=== PATIENT | female | born 1960 | race Hispanic/Latino ===

== ENCOUNTER → 2019-08-11 | Outpatient (CLI) | payer BC ==
[~2019-08-11] MED LIST: ATOR10TA69 PO; LOSA25TA41 PO
== END | disposition home or self-care (01) ==
LOC: SHCH 09:52
PROVIDERS: ATTEND Internal Medicine Cardiovascular Disease
DX: R07.9 Chest pain, unspecified (principal)
CPT/HCPCS: 93306

== ENCOUNTER 2024-05-29 09:09 | Emergency (ER) | payer OTHER ==
[~2024-05-29] VITALS: Ht 162.6 cm; Wt 88.0 kg
[2024-05-29 09:39] LABS: BASOPHILS # (AUTO) 0.01 K/uL (0.00-0.20); BASOPHILS % (AUTO) 0.1 % (0.0-5.0); EOSINOPHILS # (AUTO) 0.04 K/uL (0.00-0.70); EOSINOPHILS % (AUTO) 0.4 % (0.0-8.0); HEMATOCRIT 43.5 % (36-48); IMMATURE GRANULOCYTE ABSOLUTE 0.03 K/uL (0-1); LYMPHOCYTES # (AUTO) 0.6 K/uL (1.0-4.8); LYMPHOCYTES % (AUTO) 6.1 % (21.0-51.0); MEAN CORPUSCULAR HEMOGLOBIN 28.8 pg (27.0-33.0); MEAN CORPUSCULAR HGB CONC 33.3 g/dL (32.0-36.0); MEAN CORPUSCULAR VOLUME 86.5 fL (79-99); MONOCYTES # (AUTO) 0.3 K/uL (0.1-1.0); MONOCYTES % (AUTO) 3.2 % (3.0-13.0); NEUTROPHILS # (AUTO) 8.8 K/uL (1.8-7.7); NEUTROPHILS % (AUTO) 89.9 % (40.0-77.0); PLATELET COUNT (AUTO) 255 K/uL (130-400); RED BLOOD CELL COUNT(AUTO) 5.03 MIL/uL (4.00-5.50); RED CELL DISTRIBUTION WIDTH 12.8 % (11.0-15.5); WHITE BLOOD COUNT (AUTO) 9.8 K/uL (4.8-10.8)
[2024-05-29 09:48] LABS: CREATININE 0.9 mg/dL (0.5-1.0); POTASSIUM 3.7 mmol/L (3.5-5.1)
[2024-05-29] MEDS: LIDOCAINE HCL 2% VISCOUS 15 ML UDCUP PO ONE (10:14)
[2024-05-29] MEDS: 0.9%NACL 1000ML 1,000 ML IV ONE (10:14)
[2024-05-29] MEDS: DICYCLOMINE HCL 10 MG/5 ML ML PO ONE (10:14)
[2024-05-29] MEDS: MAG/ALUM/SIMETH 30 ML UDCUP PO ONE (10:14)
[2024-05-29 10:24] LABS: B-TYPE NATRIURETIC PEPTIDE 13 pg/mL (0-100)
[2024-05-29 10:34] LABS: ALBUMIN 3.8 g/dL (3.5-5.0); BILIRUBIN,TOTAL 0.8 mg/dL (0.2-1.0); TOTAL PROTEIN, SERUM 8.1 g/dL (6.0-8.3)
[2024-05-29 12:22] LABS: APPEARANCE,URINE CLEAR (CLEAR); BILIRUBIN,URINE NEGATIVE (NEGATIVE); COLOR,URINE LIGHT-YELLOW (YELLOW); GLUCOSE, URINE (UA) NEGATIVE (NEGATIVE); KETONES,URINE NEGATIVE (NEGATIVE); LEUKOCYTE ESTERASE ,URINE NEGATIVE Leu/uL (NEGATIVE); NITRATE,URINE NEGATIVE (NEGATIVE); OCCULT BLOOD,URINE LARGE (NEGATIVE); PROTEIN,URINE NEGATIVE (NEGATIVE); UROBILINOGEN,URINE 0.2 mg/dL (0.2-1.0)
[2024-05-29 12:24] LABS: ADD UA MICROSCOPIC YES
[2024-05-29 12:27] LABS: RBC,URINE 26-50 /HPF (0-1); SQUAMOUS EPITHELIAL CELL,UR RARE /HPF (0-2)
[2024-05-29 12:50] VITALS: BP 117/65; PULSE 85; RESP 18; TEMP 98.8; O2SAT 99
== END 2024-05-29 12:59 | disposition home or self-care (01) ==
LOC: EDH 09:09
DX: K52.9 Noninfective gastroenteritis and colitis, unspecified (principal); I10 Essential (primary) hypertension; Z79.899 Other long term (current) drug therapy; Z98.890 Other specified postprocedural states
CPT/HCPCS: 99285; 96360; 71045; 82550; 84484; 80053; 83880; 83690; 85025; 81001; 36415; 93005; J7030

== ENCOUNTER 2024-07-09 02:08 | Inpatient (IN) | payer OTHER ==
[~2024-07-09] VITALS: Ht 162.6 cm; Wt 89.0 kg
--- NOTE | 2024-07-09 02:15 | ERN ---
ED Note History of Present Illness Stated Complaint: C/O PAIN/SPASM TO RIGHT BREAST X 3 WKS Chief Complaint: Breast Problem Time Seen by MD: 02:10 Dictation: Ms. Trejo is a very pleasant 64-year-old female who is very overweight came into the ER with complaints of right-sided chest pain for the past 3-4 weeks. Her pain was intense with an any breath and hence she was holding her breast and splinting. She does not have any breast spasms or pain in the breast. She had a mammogram month ago which was completely negative She also reports chronic shoulder pains and arthritis and lately is unable to lift her right shoulder completely No history of any fevers chils, palpitations shortness of breath. No history of any syncope. She was quite tearful during my evaluation holding her right breast and splinting the right side of the chest. Allergies: Coded Allergies: No Known Drug Allergies (Unverified Allergy, Unknown, 08/03/17) Home Meds Reported Medications Atorvastatin Calcium (Atorvastatin Calcium) 10 Mg Tablet, 10 MG PO DAILY, TAB 08/03/17 Losartan Potassium (Losartan Potassium) 25 Mg Tablet, 25 MG PO DAILY, TAB 08/03/17 Past Medical History Past Medical History: Hypertension Surgical History: Other Surgical History Other: ABD HERNIA REPAIR Family History: Negative Social History: Negative History: Not Applicable RN Note Reviewed/Agreed w/PFSH: Yes Review of System Dictation Constitutional: Negative for fever,chills, and weight loss Eyes: Negative for injury, pain,redness, and discharge ENT: Negative for injury,pain or swelling Cardiovascular: Positive for right-sided pleuritic chest pain, no history of palpitations, and edema Respiratory: Negative for shortness of breath, cough, and wheezing, Abdomen/GI: Negative for abdominal pain, nausea, vomiting, diarrhea, and constipation Back: Negative for injury and pain : Negative for injury, bleeding and discharge MS/Extremity: Negative for injury and deformity Skin: Negative for rash, and discoloration Neuro: Negative for headache, weakness, numbness, tingling, and seizure Psych: Negative for suicide ideation, homicidal ideation, and hallucinations Initial Vital Sign VS Vital Signs Date Time Temp Pulse Resp B/P (MAP) Pulse Ox O2 Delivery O2 Flow Rate FiO2 07/09/24 02:10 99.7 95 20 151/87 96 Room Air 07/09/24 03:13 0 21 Physical Exam Dictation General: awake, alert, NAD obese female holding her right breast and splinting Head/Face: Normocephalic, atraumatic Eyes: PERRL, EOMI, vision at baseline ENT: oral cavity clear, TMs clear, no signs of infection Neck: Trachea midline, supple, no nuchal rigidity Cardiovascular: RRR, normal S1/S2, No MRGs, no JVD Respiratory: CTAB, no respiratory distress, No rales or wheezes I could not appreciate any obvious pleural rub on the right side. No tenderness either in the breast or ribcage. Abdomen: Soft, non-tender, non-distended, normal bowel sounds, no guarding or rebound. Skin: Warm, dry, normal turgor, no rash MS/Extremity: Pulses equal, no cyanosis, neurovascular intact, FROM Neuro: COAx4, GCS 15, strength 5/5, CN 2-12 intact, normal cerebellar exam, normal gait, Psych: Normal behavior, mood, and affect normal Extremities-trace edema without any palpable cords, Homans sign is negative Results (Laboratory/Radiology) Laboratory/Radiology Laboratory Tests Test 07/09/24 02:29 07/09/24 03:11 07/09/24 03:45 White Blood Count 8.4 K/uL (4.8-10.8) Red Blood Count 4.72 MIL/uL (4.00-5.50) Hemoglobin 13.6 g/dL (12.0-16.0) Hematocrit 40.9 % (36-48) Mean Corpuscular Volume 86.7 fL (79-99) Mean Corpuscular Hemoglobin 28.8 pg (27.0-33.0) Mean Corpuscular Hemoglobin Concent 33.3 g/dL (32.0-36.0) Red Cell Distribution Width 12.6 % (11.0-15.5) Platelet Count 283 K/uL (130-400) Mean Platelet Volume 10.2 fL (7.5-10.5) Immature Granulocyte % (Auto) 0.4 % (0-1) Neutrophils (%) (Auto) 67.5 % (40.0-77.0) Lymphocytes (%) (Auto) 21.5 % (21.0-51.0) Monocytes (%) (Auto) 6.7 % (3.0-13.0) Eosinophils (%) (Auto) 3.7 % (0.0-8.0) Basophils (%) (Auto) 0.2 % (0.0-5.0) Neutrophils # (Auto) 5.7 K/uL (1.8-7.7) Lymphocytes # (Auto) 1.8 K/uL (1.0-4.8) Monocytes # (Auto) 0.6 K/uL (0.1-1.0) Eosinophils # (Auto) 0.31 K/uL (0.00-0.70) Basophils # (Auto) 0.02 K/uL (0.00-0.20) Absolute Immature Granulocyte (auto 0.03 K/uL (0-1) Nucleated Red Blood Cells 0.0 % (0.0-0.19) Sodium Level 142 mmol/L (136-145) Potassium Level 3.7 mmol/L (3.5-5.1) Chloride Level 103 mmol/L (101-111) Carbon Dioxide Level 30 mmol/L (21-32) Blood Urea Nitrogen 17 mg/dL (7-18) Creatinine 0.9 mg/dL (0.5-1.0) Glomerular Filtration Rate Calc 72 mL/min (>90) Random Glucose 125 mg/dL (70-105) H Total Calcium 9.3 mg/dL (8.5-10.1) Urine Color LIGHT-YELLOW (YELLOW) Urine Appearance CLOUDY (CLEAR) H Urine pH 6.5 (5.0-8.0) Urine Specific [place] 1.012 (1.001-1.031) Urine Protein 10 mg/dL (NEGATIVE) H Urine Glucose (UA) NEGATIVE mg/dL (NEGATIVE) Urine Ketones NEGATIVE mg/dL (NEGATIVE) Urine Occult Blood MODERATE (NEGATIVE) H Urine Nitrate 2+ (NEGATIVE) H Urine Bilirubin NEGATIVE mg/dL (NEGATIVE) Urine Urobilinogen 0.2 mg/dL (0.2-1.0) Urine Leukocyte Esterase 500 Renny/uL (NEGATIVE) H Urine RBC 26-50 /HPF (0-1) H Urine WBC TNTC /HPF (0-1) H Urine WBC Clumps (Auto) MOD /HPF (0-1) Urine Squamous Epithelial Cells FEW /HPF (0-2) Urine Bacteria MANY /HPF (None Seen) Influenza Type A Antigen Negative For Type A Influenza Type B Antigen Negative For Type B SARS-CoV-2 Antigen (Rapid) PRESUMPTIVE NEGATIVE Labs Reviewed?: Yes EKG Comment: Twelve lead EKG done on 07/09/2024 at 2:39 a.m. showed sinus rhythm with a heart rate of 87, NC interval 159, QRS 80, QT/QTC 358/430. Impression normal sinus rhythm with LVH and T-wave inversions in the septal and anterior leads. No acute ST elevations noted. Very nonspecific ST-T changes. Interpreted by Dr. Myrick ED Course ED Course Orders Procedure Category Date Status Time Cbc With Differential LAB 07/09/24 Complete 02:15 Basic Metabolic Panel LAB 07/09/24 Complete 02:15 Urinalysis Profile LAB 07/09/24 Complete 02:15 Chest 1vw RAD 07/09/24 Resulted 02:17 12 Lead Ekg Tracing- EKG 07/09/24 Complete Technical 02:32 Ketorolac PHA 07/09/24 Complete Tromethamine 15mg/Ml 03:00 Ketorolac PHA 07/09/24 Complete Tromethamine 15mg/Ml 02:37 *Nursing CPOE 07/09/24 Transmitted Communication: 02:52 Influenza Type A & B, LAB 07/09/24 Complete Rapid 03:12 Covid19 (Sars Antigen LAB 07/09/24 Complete Rapid) 03:12 Methylprednisolone PHA 07/09/24 Complete Succ 125mg (Solu-Medr 03:30 Bedside Troponin-I LAB.ER 07/09/24 In Process (Poc) 03:31 Bedside Troponin-I LAB.ER 07/09/24 In Process (Poc) 03:31 Culture Urine CARMEN 07/09/24 In Process 03:34 Ceftriaxone 1g Vial PHA 07/09/24 Complete (Rocephine 1g Inj) 04:[address] Ct Chest Pe Protocol CT 07/09/24 Resulted Wwo Cont 04:13 Edm Admit Bridge Order ADM 07/09/24 Transmitted 04:59 Admit Orders ADM 07/09/24 Transmitted 04:59 Iohexol (Omnipaque) PHA 07/09/24 Complete 05:22 Vital Signs(Adult CPOE 07/09/24 Transmitted Hospitalist) 06:29 Oxygen By Nc/Pulse Ox CPOE 07/09/24 Transmitted 06:29 Acetaminophen 325 Tab PHA 07/09/24 In Process (Tylenol 325mg Tab 06:30 Acetaminophen 325 Tab PHA 07/09/24 In Process (Tylenol 325mg Tab 06:30 Ondansetron 4mg Inj PHA 07/09/24 In Process (Zofran 4mg Inj) 06:30 Nurse To Enter Home CPOE 07/09/24 Transmitted Medication 06:29 Admit Orders ADM 07/09/24 Transmitted 06:29 Condition: CPOE 07/09/24 Transmitted 06:29 Activity: Ad Bhargavi CPOE 07/09/24 Transmitted 06:29 Consistent Carb DIET 07/09/24 Transmitted Breakfast Basic Metabolic Panel LAB 07/10/24 Verified 04:00 Cbc With Differential LAB 07/10/24 Verified 04:00 Famotidine 20mg Tab PHA 07/09/24 In Process (Pepcid 20mg Tab) 09:00 Enoxaparin Sodium 40 PHA 07/09/24 In Process Mg/0.4 Ml (Lovenox) 09:00 Ceftriaxone 1g Vial PHA 07/09/24 Complete (Rocephine 1g Inj) 06:30 Morphine 2mg Syg PHA 07/09/24 In Process (Morphine 2mg Syg) 06:30 Ceftriaxone 1g Vial PHA 07/09/24 Complete (Rocephine 1g Inj) 07:00 Ceftriaxone 1g Vial PHA 07/10/24 In Process (Rocephine 1g Inj) 04:00 Current Medications Medications (Trade) Dose Ordered Sig/Pepito Route PRN Reason Start Time Stop Time Status Last Admin Dose Admin Ceftriaxone Sodium (ROCEphine 1G INJ) 1 gm ONCE ONCE IVPB 07/09/24 04:00 07/09/24 04:02 DC 07/09/24 04:05 Iohexol (Omnipaque) 75 ml STK-MED ONCE IV 07/09/24 05:22 07/09/24 05:22 DC Ketorolac Tromethamine (toRADol) 15 mg ONCE ONCE IV 07/09/24 03:00 07/09/24 03:01 DC 07/09/24 02:40 Ketorolac Tromethamine (toRADol) 15 mg STK-MED ONCE .ROUTE 07/09/24 02:37 07/09/24 02:37 DC Methylprednisolone Sodium Succinate (Solu-medROL 125MG) 125 mg ONCE ONCE IVP 07/09/24 03:30 07/09/24 03:31 DC 07/09/24 04:03 Vital Signs Date Time Temp Pulse Resp B/P (MAP) Pulse Ox O2 Delivery O2 Flow Rate FiO2 07/09/24 18:08 70 20 136/70 94 Room Air* 0 21 07/09/24 16:23 75 14 136/70 94 Room Air* 0 21 07/09/24 15:16 80 18 138/82 94 Room Air* 0 21 07/09/24 12:13 99 14 142/90 94 Room Air* 0 21 07/09/24 08:09 97.9 79 14 126/65 96 Room Air* 0 21 07/09/24 06:11 71 16 133/61 94 Room Air* 0 21 07/09/24 04:35 73 20 142/63 95 Room Air* 0 21 07/09/24 03:13 98.4 90 16 154/78 95 Room Air* 0 21 07/09/24 02:10 99.7 95 20 151/87 96 Room Air We will perform diagnostic labs, advanced imaging and administer medications according to the patient's complaint. Once the results are available, will review and personally interpreted the labs to rule out any acute life- threatening emergency the trach require immediate intervention and treatment. I will then re-evaluate the patient after treatment and diagnostic exams have return to determine whether the patient requires any further testing, can safely be discharged home or need further admission to hospital for additional treatment and evaluation. Reviewed labs CBC BNP 7 are within normal limits urinalysis is very abnormal with too numerous to count white cells. Chest x-ray mild atelectasis at the left base. 4:13 a.m. right-sided pain is still very severe and patient is in tears. In view of the low-grade fever, ongoing chest pain and UTI I had a long discussion with the patient and her spouse and informed them the plan of care to pursue a CT scan of the chest with a PE protocol and admit her for pain control and any further additional testing that is needed. Patient was accepted by the hospitalist group mid-level provider Dylan Simpson for admission HEART Score Response (Comments) Value History: Low suspicion (0) 0 EKG: Repolarization changes 1 Age: 45-65yrs (+1) 1 Risk Factors: 1-2 risk factors (+1) 1 Initial Troponin: Normal limit (0) 0 HEART Score Risk: Low Risk for MACE (1-3) Total 3 Medical Decision Making MDM MDM: Differential diagnosis: Severe right-sided chest pain with splinting, viral pleurisy, pulmonary embolus, early pneumonia, rib fractures, musculoskeletal pain, early herpes zoster Rationale: Tests considered and ordered secondary to shared decision making include: labs, ECG and radiology Previous outside records reviewed: Old ER visits. Risk of complication and/or morbidity or mortality of patient management: None Medications-Per medication reconciliation Need for hospitalization: Patient does meet criteria for hospitalization. Need for emergency major/minor surgery: No There are no social concerns with this patient. Prescription drug management Prescriptions will include symptomatic care Patient's prior external medical records from other ER visits were reviewed by me as indicated. Prior testing and results from previous visits were reviewed. Prior tests were taken into account with medical decision making and resource utilization, independent historian/historians were used to obtain complete medical history. I independently interpreted the test that were performed, results were reviewed by me and considered findings on radiology if ordered. Medical management and examination interpretation discussions were had by me with other qualified healthcare professionals as indicated for the patient's care. Problem List Problem List: (1) Chest pain (2) Morbid obesity (3) Acute cystitis DX & DISP Disposition: Inpatient Decision to Admit Time: 04:25 Departure Impression: Primary Impression: Chest pain Additional Impressions: Acute cystitis, Morbid obesity Condition: Stable Additional Instructions: Patient was informed of all the diagnostic labs and procedures conducted in the emergency room today and demonstrated understanding of the results. I personally reviewed and interpreted all the diagnostic exams performed in the ER today. The patient will be admitted to the hospital for further treatment and evaluation. Disposition-admit to facility Condition-stable/guarded Course-uncertain at this time Pain status-decreased Assessment-exam unchanged Admission Certification- I certify that the patients status is appropriate and is based on my best clinical judgment and the patient's condition as documented in the medical records Referrals: LIAN BURTON (PCP) TIMOTHY MYRICK MD Jul 09, 2024 02:15
[2024-07-09 02:38] LABS: BASOPHILS # (AUTO) 0.02 K/uL (0.00-0.20); BASOPHILS % (AUTO) 0.2 % (0.0-5.0); EOSINOPHILS # (AUTO) 0.31 K/uL (0.00-0.70); EOSINOPHILS % (AUTO) 3.7 % (0.0-8.0); HEMATOCRIT 40.9 % (36-48); IMMATURE GRANULOCYTE ABSOLUTE 0.03 K/uL (0-1); LYMPHOCYTES # (AUTO) 1.8 K/uL (1.0-4.8); LYMPHOCYTES % (AUTO) 21.5 % (21.0-51.0); MEAN CORPUSCULAR HEMOGLOBIN 28.8 pg (27.0-33.0); MEAN CORPUSCULAR HGB CONC 33.3 g/dL (32.0-36.0); MEAN CORPUSCULAR VOLUME 86.7 fL (79-99); MONOCYTES # (AUTO) 0.6 K/uL (0.1-1.0); MONOCYTES % (AUTO) 6.7 % (3.0-13.0); NEUTROPHILS # (AUTO) 5.7 K/uL (1.8-7.7); NEUTROPHILS % (AUTO) 67.5 % (40.0-77.0); PLATELET COUNT (AUTO) 283 K/uL (130-400); RED BLOOD CELL COUNT(AUTO) 4.72 MIL/uL (4.00-5.50); RED CELL DISTRIBUTION WIDTH 12.6 % (11.0-15.5); WHITE BLOOD COUNT (AUTO) 8.4 K/uL (4.8-10.8)
[2024-07-09] MEDS: ketOROlac 15MG/ML VIAL (15MG/ML) ONE (02:39)
[2024-07-09] MEDS: ketOROlac 15MG/ML VIAL (15MG/ML) IV ONE (02:40)
[2024-07-09 02:49] LABS: CREATININE 0.9 mg/dL (0.5-1.0); POTASSIUM 3.7 mmol/L (3.5-5.1)
[2024-07-09 03:26] LABS: APPEARANCE,URINE CLOUDY (CLEAR); BILIRUBIN,URINE NEGATIVE (NEGATIVE); COLOR,URINE LIGHT-YELLOW (YELLOW); GLUCOSE, URINE (UA) NEGATIVE (NEGATIVE); KETONES,URINE NEGATIVE (NEGATIVE); LEUKOCYTE ESTERASE ,URINE 500 Leu/uL (NEGATIVE); NITRATE,URINE 2+ (NEGATIVE); OCCULT BLOOD,URINE MODERATE (NEGATIVE); PH,URINE 6.5 (5.0-8.0); PROTEIN,URINE 10 mg/dL (NEGATIVE); UROBILINOGEN,URINE 0.2 mg/dL (0.2-1.0)
[2024-07-09 03:31] LABS: ADD UA MICROSCOPIC YES
[2024-07-09 03:35] LABS: BACTERIA,URINE MANY /HPF (None Seen); RBC,URINE 26-50 /HPF (0-1); SQUAMOUS EPITHELIAL CELL,UR FEW /HPF (0-2); WBC CLUMP MOD /HPF (0-1); WBC,URINE TNTC /HPF (0-1)
[2024-07-09] MEDS: Solu-medROL 125MG VIAL IVP ONE (04:03)
[2024-07-09] MEDS: cefTRIAXone 1G VIAL IVPB ONE (04:05)
[2024-07-09 04:09] LABS: COVID19 (SARS ANTIGEN RAPID) PRESUMPTIVE NEGATIVE (NEGATIVE)
[2024-07-09 04:10] LABS: INFLUENZA TYPE A Negative For Type A (NEGATIVE); INFLUENZA TYPE B Negative For Type B (NEGATIVE)
[2024-07-09] MEDS ORDERED: IOHEXOL-350 75 ML VIAL IV ONE (05:22)
[2024-07-09] MEDS ORDERED: acetaMINOPHEN 325 MG TAB PO PRN (06:30)
[2024-07-09] MEDS ORDERED: cefTRIAXone 1G VIAL 2 GM in 0.9%NACL 100ML 100 ML IV SCH (06:30)
--- NOTE | 2024-07-09 06:36 | HP ---
History of Present Illness Reason for Visit: Breast pain History of Present Illness Ms. Trejo is a 64-year-old female that was seen and examined today on 07/09/2024. Patient reports that she came to the emergency department with a chief complaint breast pain. Onset was three weeks ago. Location is to right lower and lateral chest wall. Duration is on and off. There was no alleviating factors. Symptoms are aggravated with taking a deep breath. Character is described as cramping or spasm. Patient denies any associated chest pain or shortness of breath. Today in the emergency department CBC unremarkable, chemistry unremarkable, urinalysis positive for leukocyte esterase and WBCs too many to co unt. Emergency room physician recommended that patient be admitted with a diagnosis of UTI and intractable breast pain. Past Medical History Patient History: Asthma MOTHER Cardiovascular disease MOTHER Chronic obstructive pulmonary disease MOTHER Diabetes mellitus FATHER SISTER Hypertension FATHER BROTHER Immunocompromised state MOTHER ADDITIONAL PAST MEDICAL HISTORY: [Hypertension] SOCIAL HISTORY: [Negative for smoking, alcohol use, drug use] SURGICAL HISTORY: [Hernia repair, ] Review of Systems General: No Fever, No Chills, No Night Sweats, No Fatigue, No Malaise, No Appetite, No Other HEENT: No Head Aches, No Visual Changes, No Eye Pain, No Ear Pain, No Dysphasia, No Sinus Congestion, No Post Nasal Drip, No Sore Throat, No Other Pulmonary: No Dyspnea, No Cough, No Pleuritic Chest Pain, No Other Cardiovascular: No: Chest Pain, Palpitations, Orthopnea, Paroxysmal Noc. Dyspnea, Edema, Lt Headedness, Other Gastrointestinal: No: Nausea, Vomiting, Abdominal Pain, Diarrhea, Constipation, Melena, Hematochezia, Other Genitourinary: No Dysuria, No Frequency, No Incontinence, No Hematuria, No Retention, No Other Musculoskeletal: other (Breast pain); No: neck pain, shoulder pain, arm pain, back pain, hand pain, leg pain, foot pain Skin: No Urticaria, No Rash, No Other Neurological: No: Weakness, Numbness, Incoordination, Change in speech, Confusion, Seizures, Other Allergies: Coded Allergies: No Known Drug Allergies (Unverified Allergy, Unknown, 08/03/17) Scheduled Cetirizine HCl (Cetirizine HCl), 10 MG PO HS, (Reported) Loratadine (Loratadine), 1 TAB PO DAILY, (Reported) Losartan Potassium (Losartan Potassium), 1 TAB PO DAILY, (Reported) Magnesium Oxide (Magnesium), 200 MG PO HS, (Reported) Scheduled PRN Ibuprofen (Ibuprofen 800 mg Tab), 800 MG PO TIDP PRN for PAIN, (Reported) Discontinued Medications Atorvastatin Calcium (Atorvastatin Calcium), 10 MG PO DAILY, (Reported) Losartan Potassium (Losartan Potassium), 25 MG PO DAILY, (Reported) Exam Vital Signs Vital Signs Date Time Temp Pulse Resp B/P (MAP) Pulse Ox O2 Delivery O2 Flow Rate FiO2 07/09/24 06:11 71 16 133/61 94 Room Air* 0 21 07/09/24 03:13 98.4 General Appearance: Alert, Oriented X3, Cooperative, mild distress HEENT: Atraumatic, EOMI Respiratory: Clear to auscultation, Normal air movement, NL respiratory effort Cardiovascular: Regular rate, Normal S1, Normal S2 Abdominal: Normal bowel sounds, Soft, No tenderness Extremities: No clubbing, No cyanosis, No edema Skin: No rashes, No breakdown, No significant lesion Neuro: Normal speech, Strength at 5/5 X4 ext, Cranial nerves 3-12 NL Psych/Mental Status: Mental status NL, Mood NL, Thoughts/Content NL Assessment/Plan ASSESSMENT: [ Urinary tract infection , POA Intractable right breast pain , POA Hypertension] PLAN: [ Admit patient to medical floor as inpatient status. Empiric antibiotic therapy with Rocephin. Check urine culture, follow up with the results. As-needed morphine for analgesia. Follow up with report of CT chest from radiology Consider resuming home medications once they are reconciled. GI prophylaxis, famotidine 20 mg by mouth once daily. DVT prophylaxis, Lovenox 40 mg subcutaneously once daily. This document was generated in part using voice recognition software, occasional wrong word or sound alike substitutions may have occurred due to the inherent limitations of voice recognition software. Read the chart carefully and recognize using context, where the substitutions have occurred. Although every effort was made to edit the content, orthopedic designer and typing errors may occur ATTESTATION BY PHYSICIAN I have seen and examined the patient. I reviewed the documentation, medical decision making, and treatment plan as noted by the mid-level provider above. I agree with the findings and plan of care.] GEETA CORCORAN [employer] Jul 09, 2024 06:36
[2024-07-09] MEDS ORDERED: cefTRIAXone 1G VIAL IVPB SCH (07:00)
--- NOTE | 2024-07-09 07:33 | EKG ---
[facility] Test Date: 2024-07-09 Test Time: 02:39:20 Pat Name: JAYJAY JAIMES Department: EDHIP Room: 430 Gender: F Qa Software Tester: [id number] : [id number] Requested By: TIMOTHY GIPSON Order Number: [id number] Reading MD: Malathi Zavala Measurements Intervals [place] Rate: 87 P: -5 [place]: 159 QRS: 7 QRSD: 80 T: 25 QT: 358 QTc: 430 Interpretive Statements Sinus rhythm Consider left ventricular hypertrophy Nonspecific T abnrm, anterolateral leads Compared to ECG 05/29/2024 09:09:15 Sinus tachycardia no longer present Electronically Signed On 07-10-2024 05:17:08 ALUMINUM SIDING INSTALLER by Malathi Zavala Please click the below link to view image of tracing.
[2024-07-09] MEDS: FAMOTIDINE 20MG TAB PO SCH (08:16)
[2024-07-09] MEDS: ENOXAPARIN SODIUM 40 MG/0.4 ML SYRINGE SQ SCH (08:16)
--- NOTE | 2024-07-09 08:17 | HMCIMG ---
CT CHEST PE PROTOCOL [facility] CONT REASON: right sided severe pleuritic pain TECHNIQUE: Thin axial images through the chest were obtained during bolus intravenous administration of 75 ml of Omnipaque 350. Sagittal and coronal reconstruction images were performed. FINDINGS: There is some atelectasis peripherally in the left lung base. Lungs are otherwise clear. There are no pleural effusions. There is mild cardiomegaly without pulmonary vascular congestion. Contrast outlines normal appearing pulmonary arteries. There is no CT evidence of PE. Aorta appears unremarkable with no aneurysm or dissection. Hilar and mediastinal structures appear normal as do chest wall structures. Visualized upper abdominal structures are unremarkable as well. IMPRESSION: 1. Mild atelectasis left lung base. 2. Otherwise negative PE protocol CT chest, no evidence of pulmonary embolism or aortic dissection. CT was performed with one or more following dose reduction techniques: automated exposure control, adjustment of the mA and kv according to patient's size, or use of a iterative reconstruction technique.
--- NOTE | 2024-07-09 08:29 | HMCIMG ---
CHEST 1VW REASON: breast pain and spasm COMPARISON: 05/29/2024 FINDINGS: There is mild atelectasis and or infiltrate in the left lung base. Lungs are otherwise clear. Heart size is normal. There is no vascular congestion. Mediastinum and bony thorax appear unremarkable. IMPRESSION: 1. Mild atelectasis or infiltrate in the left lung base.
[2024-07-09] MEDS: acetaMINOPHEN 325 MG TAB PO PRN (12:20)
[2024-07-09 19:55] VITALS: BP 157/81; PULSE 82; RESP 18; TEMP 97.8; O2SAT 93
[2024-07-09] MEDS ORDERED: IBUP-2077 PO (21:25)
[2024-07-09] MEDS ORDERED: MAGN250T10 PO (21:25)
[2024-07-09] MEDS ORDERED: LORA10TA7 PO (21:25)
[2024-07-09] MEDS ORDERED: LOSA25TA41 PO (21:25)
[2024-07-09] MEDS ORDERED: CETI10TA87 PO (21:25)
[2024-07-09] MEDS: doCUSate SODIUM 100 MG CAP PO ONE (22:00)
[2024-07-09] MEDS: acetaMINOPHEN WITH coDEINE 1 TAB TAB PO PRN (22:03)
[2024-07-09 23:59] VITALS: BP 122/61; PULSE 65; RESP 16; TEMP 97.7
[2024-07-10] MEDS: ondanSETRON 4MG INJ IV PRN (02:31)
[2024-07-10] MEDS: morPHINE 2 MG SYG IV PRN (02:32)
[2024-07-10] MEDS: cefTRIAXone 1G VIAL IVPB SCH (03:24)
[2024-07-10 04:21] VITALS: BP 119/60; PULSE 54; RESP 16; TEMP 97.6
[2024-07-10 05:20] LABS: BASOPHILS # (AUTO) 0.01 K/uL (0.00-0.20); BASOPHILS % (AUTO) 0.1 % (0.0-5.0); HEMATOCRIT 36.6 % (36-48); IMMATURE GRANULOCYTE ABSOLUTE 0.07 K/uL (0-1); LYMPHOCYTES # (AUTO) 1.2 K/uL (1.0-4.8); MEAN CORPUSCULAR HEMOGLOBIN 29.1 pg (27.0-33.0); MEAN CORPUSCULAR HGB CONC 32.8 g/dL (32.0-36.0); MEAN CORPUSCULAR VOLUME 88.6 fL (79-99); MONOCYTES # (AUTO) 0.7 K/uL (0.1-1.0); NEUTROPHILS # (AUTO) 11.3 K/uL (1.8-7.7); NEUTROPHILS % (AUTO) 85.4 % (40.0-77.0); PLATELET COUNT (AUTO) 269 K/uL (130-400); RED BLOOD CELL COUNT(AUTO) 4.13 MIL/uL (4.00-5.50); RED CELL DISTRIBUTION WIDTH 12.5 % (11.0-15.5); WHITE BLOOD COUNT (AUTO) 13.2 K/uL (4.8-10.8)
[2024-07-10 05:25] LABS: CREATININE 0.9 mg/dL (0.5-1.0); POTASSIUM 4.1 mmol/L (3.5-5.1)
[2024-07-10 06:03] LABS: WBC MORPHOLOGY CONSISTENT W/DIFF
[2024-07-10 07:40] VITALS: O2SAT 96
[2024-07-10 07:55] VITALS: BP 119/60; PULSE 52; RESP 18; TEMP 97.6
[2024-07-10 11:35] VITALS: BP 120/64; PULSE 56; RESP 17; TEMP 97.8
[2024-07-10] MEDS ORDERED: LEVO-70 PO (12:23)
--- NOTE | 2024-07-10 12:27 | DS ---
Discharge Summary Hospital Course Summary: DATE OF ADMISSION:[07/09/2024] DATE OF DISCHARGE:[07/10/2024] DISPOSITION:[Home] CONDITION:[Medically cleared] CONSULTANTS:[None] FOLLOW UP APPOINTMENTS:[PCP 2 to 3 days] PROCEDURES:[None] IMAGING: report attached to summary MICROBIOLOGY: report attached to summary ACTIVITY:[Independent] HOME MEDICATIONS: see [facility] NEW MEDICATIONS:[Levofloxacin] EMERGENCY INSTRUCTIONS: The patient was instructed to present to the nearest Emergency departmentr or call 911 once their symptoms will return or worsen Cake Tester(s): Ms. Trejo is a 64-year-old female that was seen and examined today on 07/09/2024. Patient reports that she came to the emergency department with a chief complaint breast pain. Onset was three weeks ago. Location is to right lower and lateral chest wall. Duration is on and off. There was no alleviating factors. Symptoms are aggravated with taking a deep breath. Character is described as cramping or spasm. Patient denies any associated chest pain or shortness of breath. Today in the emergency department CBC unremarkable, chemistry unremarkable, urinalysis positive for leukocyte esterase and WBCs too many to count. Emergency room physician recommended that patient be admitted with a diagnosis of UTI and intractable breast pain. Patient was seen by nurse practitioner and physician during rounding in room 430 comfortably lying bed. Urine culture negative. Chest x-ray showed mild atelectasis left lung base chest CT was negative for PE showed atelectasis. We will patient will be discharged home on levofloxacin antibiotics. We recommend follow up outpatient with PCP in 2 to 3 days patient denies any shortness of breath, chest pain, nausea, vomiting or any other discomfort. Procedure(s): Review of Systems General: No Fever, No Chills, No Night Sweats, No Fatigue, No Malaise, No Appetite, No Other HEENT: No Head Aches, No Visual Changes, No Eye Pain, No Ear Pain, No Dysphasia, No Sinus Congestion, No Post Nasal Drip, No Sore Throat, No Other Pulmonary: No Dyspnea, No Cough, No Pleuritic Chest Pain, No Other Cardiovascular: No: Chest Pain, Palpitations, Orthopnea, Paroxysmal Noc. Dyspnea, Edema, Lt Headedness, Other Gastrointestinal: No: Nausea, Vomiting, Abdominal Pain, Diarrhea, Constipation, Melena, Hematochezia, Other Genitourinary: No Dysuria, No Frequency, No Incontinence, No Hematuria, No Retention, No Other Musculoskeletal: other (Breast pain); No: neck pain, shoulder pain, arm pain, back pain, hand pain, leg pain, foot pain Skin: No Urticaria, No Rash, No Other Neurological: No: Weakness, Numbness, Incoordination, Change in speech, Confusion, Seizures, Other Allergies: Coded Allergies: No Known Drug Allergies (Unverified Allergy, Unknown, 08/03/17) Assessment/Plan: ASSESSMENT: [acute complicated cystitis, POA Intractable right breast pain , POA-resolved uncontrolled Hypertension] Home Medications: Reported Medications Ibuprofen (Ibuprofen 800 mg Tab) 800 Mg Tab, 800 MG PO TIDP PRN for PAIN, TAB 07/09/24 Magnesium Oxide (Magnesium) 250 Mg Tablet, 200 MG PO HS, TAB 07/09/24 Cetirizine HCl (Cetirizine HCl) 10 Mg Tab.chew, 10 MG PO HS, TAB.CHEW 07/09/24 Loratadine (Loratadine) 10 Mg Tablet, 1 TAB PO DAILY for allergy symptoms for 30 Days, #30 TAB 0 Refills 07/09/24 Losartan Potassium (Losartan Potassium) 25 Mg Tablet, 1 TAB PO DAILY for 30 Days, #30 TAB 0 Refills 07/09/24 Discontinued Reported Medications Atorvastatin Calcium (Atorvastatin Calcium) 10 Mg Tablet, 10 MG PO DAILY, TAB 08/03/17 Losartan Potassium (Losartan Potassium) 25 Mg Tablet, 25 MG PO DAILY, TAB 08/03/17 Time spent arranging discharge: 31-60 minutes ATTESTATION BY PHYSICIAN I have seen and examined the patient. I reviewed the documentation, medical decision making, and treatment plan as noted by the mid-level provider above. I agree with the findings and plan of care. CHARLENE SANTOS MD, KATARZYNA B [facility] Jul 10, 2024 12:27
== END 2024-07-10 14:27 | disposition home or self-care (01) | DRG 690 ==
LOC: EDH 02:08 → EDHIP 06:29 → 4AH 19:55
PROVIDERS: ADMIT Internal Medicine; ATTEND Internal Medicine
DX: N30.00 Acute cystitis without hematuria (principal); I10 Essential (primary) hypertension; E66.01 Morbid (severe) obesity due to excess calories; N64.4 Mastodynia; Z82.49 Family history of ischemic heart disease and other diseases of the circulatory system; Z83.3 Family history of diabetes mellitus; Z68.33 Body mass index [BMI] 33.0-33.9, adult; Z79.82 Long term (current) use of aspirin; Z79.899 Other long term (current) drug therapy
CPT/HCPCS: 36415; 71045; 71270; 80048; 81001; 85025; 87086; 87186; 87426; 87804; 93005; 96372; 96374; 96375; 99285; G0378; J0696; J1650; J1885; J2270; J2405; J2919; Q9967